=== PATIENT | female | born 1950 | race Caucasian/White ===

== ENCOUNTER → 2016-12-08 | Outpatient (CLI) | payer MEDICARE ==
[~2016-12-08] MED LIST: ASPIRIN81 M2 PO; GLUCOTROL PO; LEVEMIR FL100 UNIT/1 SUBQ; LIPITOR PO; LISINOPRIL PO; METFORMIN PO; MOBIC PO; OXYCODONE-APAP1 EAC5 PO; PERCOCET PO
--- NOTE | ~2016-12-08 | EKG ---
PATIENT: WALLACE MURRAY UNIT #: [id number] Ventricular Rate: 87 BPM Atrial Rate: 87 BPM P-R Interval: 114 ms QRS Duration: 78 ms Q-T Interval: 352 ms QTC Calculation(Bezet): 423 ms P Eunice: 71 degrees Calculated R Eunice: 59 degrees Calculated T Eunice: 54 degrees Diagnosis Line: Normal sinus rhythm Diagnosis Line: Normal ECG Diagnosis Line: No previous ECGs available Diagnosis Line: Confirmed by PENNY VENTURA MD ([id number]) on 12/09/2016 Diagnosis Line: 12:05:05 PM INTERPRETING MD: AUDREY MYRICK
[2016-12-08 12:12] LABS: BLOOD UREA NITROGEN 14 mg/dL (9-23); CALCIUM SERUM 9.7 mg/dL (8.4-10.2); CARBON DIOXIDE 28 mmol/L (22-31); CHLORIDE 103 mmol/L (100-111); CREATININE SERUM 0.5 mg/dL (0.6-1.4); GLOM FILT RATE Estimated ABOVE60 mL/min (>60); GLUCOSE FASTING 192 mg/dL (70-110); POTASSIUM 4.5 mmol/L (3.5-5.1); SODIUM 139 mmol/L (135-145)
== END | disposition home or self-care (01) ==
LOC: CAMB 10:51
PROVIDERS: Surgery
DX: Z01.818 Encounter for other preprocedural examination (principal)
CPT/HCPCS: 36415; 80048; 93005

== ENCOUNTER → 2016-12-16 | Day surgery (SDC) | payer MEDICARE ==
--- NOTE | ~2016-12-16 | OR ---
Unit #: [id number] #: [id number] Patient: WALLACE MURRAY [id number] [facility]. [address] [place], [place] [address] [id number] O MR#: [id number] NAME: WALLACE MURRAY ROOM: Date of Procedure: 12/16/2016 Admission Date: 12/16/2016 Surgeon: Kemal Sue Jr., M.D. : 1950 Attending Physician: Kemal Sue Jr., M.D. Referring Physician: Kemal Sue Jr., M.D. Primary Care Physician: Feroz Fernandes Jr., M.D. OPERATIVE REPORT INDICATIONS FOR PROCEDURE The patient is a 66-year-old white female who was recently referred to the office complaining of multiple masses; one of the right lateral chest wall, one of the right breast, and one of the left breast laterally. She was brought in at this time for excision of all 3 of these. She understands the procedure including the risks including that of bleeding, infection, poor healing and chronic pain, and consents. PREOPERATIVE DIAGNOSIS Masses of the right lateral chest wall, left breast, and right breast, rule out cancer. 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 ANESTHESIA General with LMA and 0.5% Marcaine with epinephrine locally. PROCEDURE PERFORMED Excision of 3 nodular masses as noted above. DESCRIPTION OF PROCEDURE The patient was positioned in supine position. After being anesthetized, she was prepped and draped in a routine fashion for removal of the lesion of the right lateral chest in left lateral decubitus position. After she was prepped and draped, she was locally anesthetized with 0.5% Marcaine with epinephrine. A transverse incision was made over the lesion with this being made approximately 4 to 5 inches in length. This was carried down through the subcutaneous tissue to the mass, which was dissected free of the surrounding tissue. It was not encapsulated, but was completely removed with no evidence of cutting into the mass itself. This was done with both the Bovie cautery as well as the Metzenbaum scissors. After the lesion was removed, it was sent for frozen section. Frozen section revealed probably cancer. After hemostasis achieved with Bovie cautery, some additional fragments of tissue removed, and the deeper tissue approximated with interrupted 2-0 Vicryl sutures. Skin edges approximated with stainless-steel skin clips and skin stapling device. Sterile Unit #: [id number] #: [id number] Patient: WALLACE MURRAY dressings were applied externally. The patient was then repositioned in supine position and prepped and draped again for removal of the mass of the right breast and mass of the left lateral chest wall. An incision was made over the top of the area indicated by the patient that represented the mass of the right breast. This was not so much medial, but more inferior at the 6 o'clock position. The incision was carried down through the subcutaneous tissue down to some nodular tissue, which was removed circumferentially and sent for pathology. It appeared to be benign breast tissue. After hemostasis achieved with Bovie cautery, the deeper tissue was approximated with interrupted 3-0 Vicryl sutures. Skin edges approximated with stainless-steel skin clips and skin stapling device. An incision was then made over the area of the mass of the left lateral chest wall and it was likewise removed with the #10 blade scalpel from the surrounding skin down to the deeper subcutaneous tissue. After it was removed, it was sent to Pathology. It appeared to be the same type of tumor as the one in the right lateral chest wall area. This area was then irrigated and after hemostasis achieved with Bovie cautery and the specimen sent to Pathology, the deeper tissue was approximated with interrupted 3-0 Vicryl sutures, skin edges approximated with stainless-steel skin clips and skin stapling device. Sterile dressings were applied externally. Estimated blood loss for all the procedure was less than 75 mL. The patient received less than 1000 mL of crystalloid solution during the procedure. Sponges and instrument counts were correct x3. There was a 10-mm Sam-Cadena drain placed through a separate stab wound in the right flank wound and placed in the deeper portion of the wound itself to avoid any hematoma formation. There were no complications. The patient was taken to the recovery room with stable vital signs in satisfactory condition. Dictated by... Kemal Sue Jr., M.D. JMB/marco antonio TD: 12/17/2016 03:21 JOB #: [id number] CC: Feroz Fernandes Jr., M.D. OPERATIVE REPORT Page 1 of 1 X Kemal Sue MD X PROCEDURE OPERATIVE NOTE
== END | disposition home or self-care (01) ==
LOC: CSUR 07:03
DX: C79.81 Secondary malignant neoplasm of breast (principal); C76.8 Malignant neoplasm of other specified ill-defined sites; C79.89 Secondary malignant neoplasm of other specified sites; J44.9 Chronic obstructive pulmonary disease, unspecified; F17.210 Nicotine dependence, cigarettes, uncomplicated; M51.36 Other intervertebral disc degeneration, lumbar region; E11.40 Type 2 diabetes mellitus with diabetic neuropathy, unspecified; I10 Essential (primary) hypertension; E78.5 Hyperlipidemia, unspecified; E83.52 Hypercalcemia; Z87.19 Personal history of other diseases of the digestive system; Z98.51 Tubal ligation status; Z90.49 Acquired absence of other specified parts of digestive tract; Z90.711 Acquired absence of uterus with remaining cervical stump; Z90.89 Acquired absence of other organs; Z88.1 Allergy status to other antibiotic agents; Z79.899 Other long term (current) drug therapy; Z79.891 Long term (current) use of opiate analgesic; Z83.3 Family history of diabetes mellitus; Z80.1 Family history of malignant neoplasm of trachea, bronchus and lung; Z82.49 Family history of ischemic heart disease and other diseases of the circulatory system
CPT/HCPCS: 82947; 88305; 88307; 88341; 88342; J1100; J1885; J2250; J2405; J3010

== ENCOUNTER 2016-12-19 11:54 | Emergency (ER) | payer MEDICARE | END 2016-12-19 11:55 | disposition home or self-care (01) | LOC: CED 11:54 | DX: R51 Headache (principal); Z88.1 Allergy status to other antibiotic agents; Z88.8 Allergy status to other drugs, medicaments and biological substances | CPT/HCPCS: 99282 ==